=== PATIENT | male | born 1975 | race Hispanic/Latino ===

== ENCOUNTER → 2024-07-20 10:12 | Outpatient (CLI) | payer OTHER, SELFPAY ==
--- NOTE | 2024-07-20 10:18 | DI.RAD.S_ITS ---
PROCEDURE: XR HAND LT 2V INDICATIONS: hand px TECHNIQUE: Two views of the hand(s) acquired. COMPARISON: None. FINDINGS: Bones: Accessory ossicle versus remote avulsion fracture of the ulnar styloid process tip appreciated. No significant osseous abnormality Joints: The joint spaces are normal in width and alignment without arthritic change. Soft tissues: There is mild diffuse soft tissue swelling. IMPRESSION: Mild diffuse soft tissue swelling likely edema Dictated by: Eduardo Krishna M.D. on 07/23/2024 at 6:44 Approved by: Eduardo Krishna M.D. on 07/23/2024 at 6:45
--- NOTE | 2024-07-20 10:18 | DI.RAD.S_ITS ---
PROCEDURE: XR HAND RT 2V INDICATIONS: hand px TECHNIQUE: Two views of the hand(s) acquired. COMPARISON: None. FINDINGS: Bones: There are no osseous abnormalities Joints: The joint spaces are normal in width and alignment without arthritic change. Soft tissues: Mild diffuse soft swelling noted. IMPRESSION: Mild diffuse soft tissue swelling Dictated by: Eduardo Krishna M.D. on 07/23/2024 at 6:40 Approved by: Eduardo Krishna M.D. on 07/23/2024 at 6:42
== END ==
LOC: RAD 10:16
PROVIDERS: Referring Provider Family Medicine; Visit Provider Family Medicine
DX: M79.643 Pain in unspecified hand (principal); M79.89 Other specified soft tissue disorders
CPT/HCPCS: 73120